=== PATIENT | female | born 1960 | race Caucasian/White ===

== ENCOUNTER 2018-03-08 21:13 | Emergency (ER) | payer BC ==
[2018-03-08 21:50] LABS: BASO % 0.1 % (0-6); HEMOGLOBIN 14.8 gm/dl (11.6-16.0); LYMPH % 9.9 % (16-45); MEAN CELL VOLUME 85.4 fl (81-97); MEAN CORPUSCULAR HEMOGLOBIN 28.1 pg (27-33); MEAN CORPUSCULAR HGB CONC 32.9 g/dl (32-36); MEAN PLATELET VOLUME 10.4 fl (7.4-10.4); PLATELET COUNT 361 K/uL (130-400); RED BLOOD COUNT 5.27 M/uL (3.80-5.40); RED CELL DISTRIBUTION WIDTH 13.9 % (11.5-14.5)
--- NOTE | 2018-03-08 21:55 | Emergency Department Record ---
History of Present Illness - General Chief complaint: Vomiting Stated complaint: VOMTING/DIZZY TROUBLE SWALLOWING Time Seen by Provider: 03/08/18 21:27 Source: Patient Mode of Arrival: Ambulatory Limitations: No limitations - History of Present Illness Initial comments: pt was doing heavy lifting 11 hours ago when she had a sudden pain in her neck and a headache. she then developed tingling in her l fingers and nausea. she has vomited several times. she is having difficulty swallowing MD complaint: Nausea, Vomiting, Other Onset/Timin -: Hour(s) Associated Abdominal Pain: No Severity: Mild Quality: Constant Consistency: Constant Improves with: None Worsens with: Eating Associated Symptoms: Other - Related Data Home Medications Medication Instructions Recorded Confirmed Last Taken Atorvastatin Calcium 10 mg PO DAILY 03/08/18 03/08/18 Unknown Hydrochlorothiazide [Hctz] 25 mg PO DAILY 03/08/18 03/08/18 Unknown Meloxicam [Meloxicam] 7.5 mg PO DAILY 03/08/18 03/08/18 Unknown Montelukast Sodium 10 mg PO DAILY 03/08/18 03/08/18 Unknown Venlafaxine HCl [Effexor] 37.5 mg PO DAILY 03/08/18 03/08/18 Unknown Allergies Allergy/AdvReac Type Severity Reaction Status Date / Time No Known Drug Allergies Allergy Verified 03/08/18 21:18 Travel Screening - Travel/Exposure Within Last 30 Days Have you traveled within the last 30 days?: No - Travel/Exposure Within Last Year Have you traveled outside the [place] in the last year?: No - Additonal Travel Details Have you been exposed to anyone with a communicable illness?: No - Travel Symptoms Symptom Screening: None Review of Systems Reviewed: No additional complaints except as noted below Constitutional: Reports: As per HPI. Denies: Chills, Fever, Malaise, Night sweats, Weakness, Weight change Eyes: Reports: As per HPI. Denies: Eye discharge, Eye pain, Photophobia, Vision change ENT: Reports: As per HPI. Denies: Congestion, Dental pain, Ear pain, Epistaxis , Hearing loss, Throat pain Respiratory: Reports: As per HPI. Denies: Cough, Dyspnea, Hemoptysis, Stridor, Wheezes Cardiovascular: Reports: As per HPI. Denies: Arrhythmia, Chest pain, Dyspnea on exertion, Edema, Murmurs, Orthopnea, Palpitations, Paroxysmal nocturnal dyspnea, Rheumatic Fever, Syncope Endocrine: Reports: As per HPI. Denies: Fatigue, Heat or cold intolerance, Polydipsia, Polyuria Gastrointestinal: Reports: As per HPI. Denies: Abdominal pain, Constipation, Diarrhea, Hematemesis, Hematochezia, Melena, Nausea, Vomiting Genitourinary: Reports: As per HPI. Denies: Abnormal menses, Discharge, Dyspareunia, Dysuria, Frequency, Hematuria, Incontinence, Retention, Urgency Musculoskeletal: Reports: As per HPI. Denies: Arthralgia, Back pain, Gout, Joint swelling, Myalgia, Neck pain Skin: Reports: As per HPI. Denies: Bruising, Change in color, Change in hair/ nails, Lesions, Pruritus, Rash Neurological: Reports: As per HPI. Denies: Abnormal gait, Confusion, Headache, Numbness, Paresthesias, Seizure, Tingling, Tremors, Vertigo, Weakness Psychiatric: Reports: As per HPI. Denies: Anxiety, Auditory hallucinations, Depression, Homicidal thoughts, Suicidal thoughts, Visual hallucinations Hematological/Lymphatic: Reports: As per HPI. Denies: Anemia, Blood Clots, Easy bleeding, Easy bruising, Swollen glands Past Medical History - SOCIAL HISTORY Smoking Status: Never smoker Alcohol Use: Heavy Drug Use: None - RESPIRATORY Hx Respiratory Disorders: Yes Hx Asthma: Yes - CARDIOVASCULAR Hx Cardio Disorders: Yes Hx Hypertension: Yes - NEURO Hx Neuro Disorders: No - GI Hx GI Disorders: No - Hx Genitourinary Disorders: No - ENDOCRINE Hx Endocrine Disorders: No - MUSCULOSKELETAL Hx Musculoskeletal Disorders: No - PSYCH Hx Psych Problems: No - HEMATOLOGY/ONCOLOGY Hx Hematology/Oncology Disorders: No Family Medical History Any Significant Family History?: No Physical Exam - General General Appearance: Alert, Oriented x3, Cooperative, Mild distress - Head Head exam: Normal inspection - Eye Eye exam: Normal appearance, PERRL, EOMI Pupils: Normal accommodation - ENT ENT exam: Normal exam, Mucous membranes moist, Normal external ear exam, Normal orophraynx Ear exam: Normal external inspection. negative: External canal tenderness Nasal Exam: Normal inspection. negative: Discharge, Sinus tenderness Mouth exam: Normal external inspection, Tongue normal Teeth exam: Normal inspection. negative: Dental caries Throat exam: Normal inspection. negative: Tonsillar erythema, Tonsillar exudate - Neck Neck exam: Normal inspection, Full ROM. negative: Tenderness - Respiratory Respiratory exam: Normal lung sounds bilaterally. negative: Respiratory distress - Cardiovascular Cardiovascular Exam: Regular rate, Normal rhythm, Normal heart sounds - GI/Abdominal GI/Abdominal exam: Soft, Normal bowel sounds. negative: Tenderness - Rectal Rectal exam: Deferred - exam: Deferred - Extremities Extremities exam: Normal inspection, Full ROM, Normal capillary refill. negative: Tenderness - Back Back exam: Reports: Normal inspection, Full ROM. Denies: Muscle spasm, Rash noted, Tenderness - Neurological Neurological exam: Alert, CN II-XII intact, Normal gait, Oriented X3 - Psychiatric Psychiatric exam: Normal affect, Normal mood - Skin Skin exam: Dry, Intact, Normal color, Warm Course Vital Signs 03/08/18 21:25 Temperature 97.5 F L Pulse Rate [ 63 Pulse Ox Probe] Respiratory 16 Rate Blood Pressure 144/77 [Left Arm] Pulse Ox 97 - Reevaluation(s) Reevaluation #1: 03/08/18 22:57 pt is unable to swallow and conts to have tingling Medical Decision Making - Lab Data Result diagrams: 03/08/18 21:30 03/08/18 21:30 Lab Results 03/08/18 Range/Units 21:30 WBC 9.0 (4.2-12.2) K/uL RBC 5.27 (3.80-5.40) M/uL Hgb 14.8 (11.6-16.0) gm/dl Hct 45.0 (35.0-47.0) % MCV 85.4 (81-97) fl MCH 28.1 (27-33) pg MCHC 32.9 (32-36) g/dl RDW 13.9 (11.5-14.5) % Plt Count 361 (130-400) K/uL MPV 10.4 (7.4-10.4) fl Lymphocytes % 9.9 L (16-45) % Monocytes % 2.0 (0-9) % Eosinophils % 0.0 (0-6) % Basophils % 0.1 (0-6) % Disposition Disposition: Transfer Clinical Impression: Hand numbness Dysphagia Qualifiers: Dysphagia type: unspecified Qualified Code(s): R13.10 - Dysphagia, unspecified Stroke Qualifiers: CVA mechanism: unspecified Qualified Code(s): I63.9 - Cerebral infarction, unspecified Disposition: Acute Care Hospital Transfer Transfer To: [facility] Reason For Transfer: stroke team Accepting Physician: dr schuster Time Discussed w/Accepting Physician: 23:04 Forms: Patient Portal Access Quality - Quality Measures Quality Measures: N/A - Blood Pressure Screening Does Patient Have Any of the Following: No Blood Pressure Classification: Pre-Hypertensive BP Reading Systolic Measurement: 144 Diastolic Measurement: 89 Screening for High Blood Pressure: < Pre-Hypertensive BP, F/U Documented > [ G8950] Pre-Hypertensive Follow-up Interventions: Follow-up with rescreen every year. First Hypertensive Follow-up Interventions: Follow-up with rescreen GT 1 day and LT 4 weeks. ED MDM Neuro - Lab Data Result diagrams: 03/08/18 21:30 03/08/18 21:30 Lab Results 03/08/18 03/08/18 Range/Units 21:30 21:30 WBC 9.0 (4.2-12.2) K/uL RBC 5.27 (3.80-5.40) M/uL Hgb 14.8 (11.6-16.0) gm/dl Hct 45.0 (35.0-47.0) % MCV 85.4 (81-97) fl MCH 28.1 (27-33) pg MCHC 32.9 (32-36) g/dl RDW 13.9 (11.5-14.5) % Plt Count 361 (130-400) K/uL MPV 10.4 (7.4-10.4) fl Neutrophils % 90.0 H (47-80) % Lymphocytes % 9.9 L (16-45) % Monocytes % 2.0 (0-9) % Eosinophils % 0.0 (0-6) % Basophils % 0.1 (0-6) % Lymphocytes 9.0 L (16-45) % Monocytes 1.0 (0-9) % Platelet Estimate Normal (NORMAL) RBC Morphology Normal Sodium 141 (136-145) mmol/L Potassium 3.2 L (3.4-4.5) mmol/L Chloride 97 L (98-107) mmol/L Carbon Dioxide 29.0 (22-29) mmol/L Anion Gap 15.0 (7-16) BUN 19 (6-20) mg/dL Creatinine 0.8 (0.5-0.9) mg/dL Estimated GFR > 60 mL/min Random Glucose 165 H (74-109) mg/dL Calcium 9.2 (8.6-10.0) mg/dL Total Bilirubin 0.40 (0.2-1.0) mg/dL AST 26 (10.0-35.0) U/L ALT 33 (<33) U/L Alkaline Phosphatase 129 H (35-104) U/L Total Protein 8.0 (6.6-8.7) g/dL Albumin 4.6 (4.0-5.0) g/dL Globulin 3.4 (1.4-4.8) gm/dL Albumin/Globulin Ratio 1.4 (1.1-1.8) Lipase 17 (13-60) U/L ED MDM Stroke - Lab Data Result diagrams: 03/08/18 21:30 03/08/18 21:30 Lab Results 03/08/18 03/08/18 Range/Units 21:30 21:30 WBC 9.0 (4.2-12.2) K/uL RBC 5.27 (3.80-5.40) M/uL Hgb 14.8 (11.6-16.0) gm/dl Hct 45.0 (35.0-47.0) % MCV 85.4 (81-97) fl MCH 28.1 (27-33) pg MCHC 32.9 (32-36) g/dl RDW 13.9 (11.5-14.5) % Plt Count 361 (130-400) K/uL MPV 10.4 (7.4-10.4) fl Neutrophils % 90.0 H (47-80) % Lymphocytes % 9.9 L (16-45) % Monocytes % 2.0 (0-9) % Eosinophils % 0.0 (0-6) % Basophils % 0.1 (0-6) % Lymphocytes 9.0 L (16-45) % Monocytes 1.0 (0-9) % Platelet Estimate Normal (NORMAL) RBC Morphology Normal Sodium 141 (136-145) mmol/L Potassium 3.2 L (3.4-4.5) mmol/L Chloride 97 L (98-107) mmol/L Carbon Dioxide 29.0 (22-29) mmol/L Anion Gap 15.0 (7-16) BUN 19 (6-20) mg/dL Creatinine 0.8 (0.5-0.9) mg/dL Estimated GFR > 60 mL/min Random Glucose 165 H (74-109) mg/dL Calcium 9.2 (8.6-10.0) mg/dL Total Bilirubin 0.40 (0.2-1.0) mg/dL AST 26 (10.0-35.0) U/L ALT 33 (<33) U/L Alkaline Phosphatase 129 H (35-104) U/L Total Protein 8.0 (6.6-8.7) g/dL Albumin 4.6 (4.0-5.0) g/dL Globulin 3.4 (1.4-4.8) gm/dL Albumin/Globulin Ratio 1.4 (1.1-1.8) Lipase 17 (13-60) U/L - NIH Stroke Scale 1a. Level of Consciousness: (0) Alert 1b. LOC Questions: (0) Answers Correctly 1c. LOC Commands: (0) Performs Tasks Correctly 2. Best Gaze: (0) Normal 3. Visual: (0) No Visual Loss 4. Facial Palsy: (0) Normal Symmetrical Movement 5a. Motor Arm Left: (0) No Drift 5b. Motor Arm Right: (0) No Drift 6a. Motor Leg Left: (0) No Drift 6b. Motor Leg Right: (0) No Drift 7. Limb Ataxia: (0) Absent 8. Sensory: (1) Mild/Moderate Sensory Loss 9. Best Language: (0) No Aphasia 10. Dysarthria: (0) Normal 11. Extinction/Inattention: (0) No Abnormality - Thrombolytic Incusion/Exlusion Thrombolytic Exclusion Criteria: Symptom Onset > 3 Hours
[2018-03-08 22:00] LABS: PLATELET ESTIMATE NORMAL (NORMAL)
[2018-03-08 22:02] LABS: BLOOD UREA NITROGEN 19 mg/dL (6-20); CREATININE 0.8 mg/dL (0.5-0.9); EST GLOMERULAR FILTRATION RATE > 60 mL/min
[2018-03-08 22:05] LABS: GLUCOSE,RANDOM 165 mg/dL (74-109)
[2018-03-08 22:08] LABS: ALB/GLOB RATIO 1.4 (1.1-1.8); ALBUMIN 4.6 g/dL (4.0-5.0); ALKALINE PHOSPHATASE 129 U/L (35-104); ALT/SGPT 33 U/L (<33); AST/SGOT 26 U/L (10.0-35.0); LIPASE 17 U/L (13-60)
[2018-03-08] MEDS ORDERED: 0.9 % SODIUM CHLORIDE 1,000 ML BAG IV ONE (22:34)
[2018-03-08] MEDS ORDERED: PROMETHAZINE HCL 12.5 MG in 0.9 % SODIUM CHLORIDE 100ML 100 ML IVPB ONE (22:36)
[2018-03-08] MEDS ORDERED: POTASSIUM CHLORIDE 20 MEQ TABLET PO ONE (22:40)
--- NOTE | 2018-03-10 09:41 | CT SCAN REPORT ---
EXAM: CT SCAN OF THE HEAD HISTORY: HEADACHE, VERTIGO. TECHNIQUE: Serial axial CT scan of the head was performed at 2.5 mm intervals from the base of the skull to the apex without the use of intravenous contrast. Sagittal and coronal reconstructions are provided. No comparison CT's are available. FINDINGS: There is mild to moderate, predominantly frontal volume loss. There is no mass or mass effect. The ferrell and white differentiation appear within normal limits. There is no CT evidence of intra or extraaxial fluid to suggest bleeding. The ferrell and white differentiation appear within normal limits. Bone windows demonstrate no CT evidence of a fracture or dislocation of the skull. IMPRESSION: NO CT EVIDENCE OF AN ACUTE INTRACRANIAL PROCESS. JOB NUMBER: [id number] [facility]
--- NOTE | 2018-03-10 09:51 | CT SCAN REPORT ---
EXAM: CT SCAN OF THE CERVICAL SPINE HISTORY: PATIENT HAD DIFFICULTY SWALLOWING. TECHNIQUE: Serial axial CT scan of the cervical spine was performed at 2.5 mm intervals from the base of the skull to the thoracic inlet following the intravenous administration of 95 ml of Omnipaque 300. No comparison studies are available. FINDINGS: The vertebral body height, contour, and AP alignment of the cervical spine is within normal limits. There is no CT evidence of a fracture or dislocation of the cervical spine. Moderate degenerative disk disease and facet arthropathy is noted within the mid cervical spine. The prevertebral soft tissue and parapharyngeal fat are unremarkable. There is no CT evidence of retropharyngeal abscess. The palatine tonsils are unremarkable. The visualized parotid glands, submandibular glands, and thyroid gland are unremarkable. There is no CT evidence of cervical lymphadenopathy. The airways are patent. The lung windows of the lung apices demonstrate occasional paraseptal emphysematous changes. The neck vessels are unremarkable. IMPRESSION: DEGENERATIVE DISK DISEASE OF THE CERVICAL SPINE IS NOTED WITHOUT CT EVIDENCE OF AN ACUTE PROCESS INVOLVING THE CERVICAL SPINE. JOB NUMBER: [id number] [facility]
== END 2018-03-08 23:49 | disposition short-term general hospital (02) ==
LOC: ER 21:13
DX: I63.9 Cerebral infarction, unspecified (principal); R51 Headache; R13.10 Dysphagia, unspecified; R11.2 Nausea with vomiting, unspecified; R42 Dizziness and giddiness; I10 Essential (primary) hypertension
CPT/HCPCS: 99285 ×2; 96365; 96361; 83690; 80053; 85027; 72126; 70450; 93005; 93010; Q9967; J2550; J7030